=== PATIENT | male | born 1955 | race Caucasian/White ===

== ENCOUNTER 2016-07-04 08:21 | Day surgery (SDC) | payer OTHER ==
[2016-06-30 09:22] LABS: HEMATOCRIT 38.8 % (40.0-51.0); HEMOGLOBIN 13.2 g/dL (13.6-17.8)
[2016-06-30 09:35] LABS: BUN (BLOOD UREA NITROGEN) 15 MG/DL (6-23); CALCIUM, SERUM 8.6 MG/DL (8.5-10.4); CHLORIDE, SERUM 103 MMOL/L (96-112); CO2 (CARBON DIOXIDE) 30 MMOL/L (24-34); CREATININE 0.92 MG/DL (0.70-1.30); GFR AFRICAN AMERICAN 104 ML/MIN (>=60); GFR NON AFRICAN AMERICAN 90 ML/MIN (>=60); GLUCOSE, SERUM 183 MG/DL (60-99); POTASSIUM, SERUM 4.1 MMOL/L (3.5-5.3); SODIUM, SERUM 143 MMOL/L (135-148)
--- NOTE | ~2016-07-04 | OP ---
Record Of Operation [facility] [address] [place]. [address] NAME: ELINA BUENO : 57 STATUS : [facility]#: [id number] AGE: 61 ADM/REG DATE : 07/04/16 MR#: [id number] REPORT SERV DATE: 07/04/16 DICTATED BY: SHAHEEN MCKENIZE DATE: 07/04/16 REPORT STATUS : Draft TRANSCRIBED BY: MODL DATE: 07/04/16 DATE OF PROCEDURE: 07/04/2016 PREOPERATIVE DIAGNOSIS: Herniated nucleus polyposis, spinal stenosis, central, left L5-S1. POSTOPERATIVE DIAGNOSIS: Herniated nucleus polyposis, spinal stenosis, central, left L5-S1. PROCEDURES: 1. Microscopic and navigation-assisted surgery. 2. Left L5-S1 hemilaminotomy and microdiskectomy. SURGEON: Shaheen Mckenize D.O. FEATHER BALER: Rubio Chang. ANESTHESIA: General. BLOOD LOSS: 10 mL. INDICATIONS FOR SURGERY: A 61-year-old male with back pain, left hip and leg pain worse with standing and walking, better when sitting. Plain x-rays reveal some spondylosis particularly at L5-S1. There are some anterior osteophytes. MRI showed disk herniation with some calcification as a disk osteophyte type complex at L5-S1 with impaction on the thecal sac and the S1 nerve on the left. The patient now brought to surgery having failed conservative care. Prior to surgery, risks, benefits, alternatives, and expectations were explained. Consent form has been signed. After the patient was identified in the preop holding area, antibiotic prophylaxis given. Neurophysiology monitoring leads were inserted. The patient was brought to the operative suite. General anesthetic including endotracheal intubation was administered. He was placed prone on a Glenn spine frame. Bony prominences were carefully padded. Thoracolumbar spine scrubbed with Hibiclens solution. DuraPrep was painted. Sterile drapes applied. Because of the complexity of surgery and the need to identify correct level of surgery intraoperatively as well as desire to carry out the safest and most precise dissection, I felt that intraoperative navigation was mandatory. A small stab wound was carried out over the right posterior superior iliac spine. A percutaneous pin with navigational frame attached was inserted in PSIS. Intraoperative CT scan with O-arm obtained, CT information used to register the navigational system. With navigational assistance, I identified the L5-S1 level. Just to the left of midline, a 2 cm skin incision was carried out. A blunt navigated probe placed through the fascia muscle and docked over the interlaminar space. Muscle dilators were inserted followed by placement of a tubular retractor attached to an arm mount on the table. The microscope was Record Of Operation [facility] [id number] [place]. [address] NAME: ELINA BUENO : 57 STATUS : [facility] PAT#: [id number] AGE: 61 ADM/REG DATE : 07/04/16 MR#: [id number] REPORT SERV DATE: 07/04/16 DICTATED BY: SHAHEEN MCKENZIE DATE: 07/04/16 REPORT STATUS : Draft TRANSCRIBED BY: SPENCER DATE: 07/04/16 sterilely draped and used throughout the remainder of the procedure. With navigational assistance, I identified the amount of lamina of L5 I wanted to remove. A 3 mm renae bur was used to remove approximately 20% of the inferior lamina of L5, approximately 10% to 15% of medial facet joint of L5-S1. The lateral ligamentum flavum was elevated and removed. There was definitely facet hypertrophy and some calcification ligamentum flavum causing lateral recess stenosis and impingement on the exiting L5-S1 nerve root. We had some calcification centrally and this was debrided with a renae bur, followed by removal of the disk itself. Afterwards, there was no further compression from the midline to the left either midline or the exiting and traversing nerve roots. Wounds were irrigated. The retractor was removed. No bleeding was noted. The fascial layer was closed with just a single interrupted #1 Vicryl suture. The subcutaneous tissue closed with 2-0 Vicryl suture. 2-0 vertical mattress nylon suture used for skin closure. Sterile dressings applied. The patient awakened, extubated, taken to recovery room in satisfactory condition having tolerated procedure well. Sponge, needle, and instrument counts were correct. No intraoperative complications noted. JENNFIER/SPENCER Shaheen Mckenzie D.O. / [id number] CC: Soy Landa MD
[~2016-07-04 08:21] MED LIST: ASAB PO; COZ50 PO; MOBIC15 MG PO; MULTIPLE VIT PO; NORV5 PO; ZOCOR5 MG PO
== END 2016-07-04 14:13 | disposition home or self-care (01) ==
LOC: SDC 08:21
PROVIDERS: Orthopaedic Surgery Orthopaedic Surgery of the Spine
PROC: 008 Central Nervous System and Cranial Nerves, Division (ICD-10-PCS; principal; 2016-07-04 10:45)
DX: M51.27 Other intervertebral disc displacement, lumbosacral region (principal); M48.07 Spinal stenosis, lumbosacral region; I10 Essential (primary) hypertension; E11.9 Type 2 diabetes mellitus without complications
CPT/HCPCS: 80048; 82962; 85014; 85018; 88304; 88311; 93005; A9270-GY; J0690; J2250; J2274; J2405; J2710; J3010; J3370